=== PATIENT | female | born 1975 | race Caucasian/White ===

== ENCOUNTER 2021-03-08 15:11 | Inpatient (IN) ==
[2021-03-08] MEDS ORDERED: KETOROLAC TROMETHAMINE 15 MG/ML VIAL IV STA (15:24)
[2021-03-08] MEDS ORDERED: SODIUM CHLORIDE 0.9% 1000ML 1,000 ML IV ONE (15:24)
[2021-03-08] MEDS ORDERED: ONDANSETRON INJ 2 MG/ML 2 ML VIAL IV STA (15:24)
--- NOTE | 2021-03-08 15:37 | Emergency Department Note ---
History of Present Illness General Chief Complaint: GI Assessment Stated Complaint: R SIDE ABD PAIN INTO BACK,VOMITING,SX COUPLE DAYS Time Seen by Provider: 03/08/21 15:18 History of Present Illness Provider Complaint: flank pain (R) Onset (ago): 1 week(s) Pain Consistency: constant Location: R flank Radiation: RLQ Migration to: no migration Severity: moderate Current Pain Intensity: 6 Quality: + stabbing, + aching, + sharp and + dull Relieved By: + nothing Exacerbated By: + vomiting Context: + possible food poisoning; no foreign travel, no sick contacts, no recent antibiotic use, no recent surgery/procedure, no recent injury and no history of similar episodes Associated Symptoms: + nausea and + vomiting; no diarrhea, no fever, no chills, no constipation, no dysuria, no hematemesis, no hematochezia, no melena, no hematuria, no anorexia, no syncope, no headache, no neck pain, no back pain, no chest pain, no breathing difficulty and no numbness polyuria Home Medications Medication Instructions Recorded Confirmed Type fluticasone propion-salmeterol 0 puff INHALATION BID 11/07/19 03/08/21 History [Advair Diskus] hydroxyzine pamoate 50 mg PO TID PRN 11/07/19 03/08/21 History mometasone 50 mcg/actuation nasal 2 sprays INTNAS DAILY 11/15/19 03/08/21 History spray albuterol sulfate 90 mcg/actuation 2 puffs INH Q6H PRN 11/23/19 03/08/21 History breath activated powder inhaler cholecalciferol (vitamin D3) 25 mcg PO DAILY 03/08/21 03/08/21 History [Vitamin D3] gabapentin See Rx Instructions .ROUTE .COMPLEX 03/08/21 03/08/21 History meloxicam 15 mg PO DAILY 03/08/21 03/08/21 History montelukast [Singulair] 10 mg PO DAILY 03/08/21 03/08/21 History omeprazole 20 mg PO DAILY 03/08/21 03/08/21 History venlafaxine [Effexor XR] 225 mg PO DAILY 03/08/21 03/08/21 History Allergies Allergy/AdvReac Type Severity Reaction Status Date / Time amoxicillin Allergy Severe THROAT Verified 03/08/21 16:53 SWELLS, HIVES Penicillins Allergy Severe THROAT Verified 03/08/21 16:53 SWELLS, HIVES cephalexin Allergy Intermediate TONGUE Verified 03/08/21 16:53 SWELLS erythromycin base Allergy Intermediate Hives Verified 03/08/21 16:53 Macrolide Antibiotics Allergy Intermediate Hives Verified 03/08/21 16:53 metoclopramide Allergy Intermediate DYSPNEA Verified 03/08/21 16:53 Past Med/Surg History Medical History Asthma without acute exacerbation Depression Liver cirrhosis Morbid obesity No pertinent family history Sarcoidosis Surgical History History of cholecystectomy History of right knee surgery History of tonsillectomy and adenoidectomy Social History Smoking Status: Former smoker Hx Alcohol Use: Yes Alcohol type: wine Hx Substance Use: No Preferred Language: Thai Beliefs That Will Affect Care: None Current Living Situation: Family Feels Safe at Home: Yes Assistive Devices: None Review of Systems A total of 10 systems reviewed and were otherwise negative Physical Exam Vital Signs: Vital Signs - 24 hr 03/08/21 15:15 03/08/21 15:25 03/08/21 15:40 Temperature 36.6 C Temperature Source Oral Pulse Rate 78 83 81 Pulse Rate from Sp O2 Sensor 79 Pulse Rhythm Regular Respiratory Rate 18 20 20 Blood Pressure 170/110 H 138/91 Blood Pressure Marta n 130 106 Pulse Oximetry 94 98 99 Oxygen Delivery Me thod Room Air Sepsis Recent Feve r Within 48 Hours No Sepsis New/Unexpla ined Change in Men jasvir Status No Sepsis Action Take n by Nursing No Action Required 03/08/21 15:50 03/08/21 16:00 03/08/21 16:01 Temperature Temperature Source Pulse Rate 75 76 81 Pulse Rate from Sp O2 Sensor 75 76 84 Pulse Rhythm Respiratory Rate 25 H 14 22 Blood Pressure 116/95 Blood Pressure Marta n 102 Pulse Oximetry 99 95 98 Oxygen Delivery Me thod Sepsis Recent Feve r Within 48 Hours Sepsis New/Unexpla ined Change in Men jasvir Status Sepsis Action Take n by Nursing 03/08/21 16:24 03/08/21 16:25 03/08/21 16:30 Temperature Temperature Source Pulse Rate 76 72 76 Pulse Rate from Sp O2 Sensor 74 72 78 Pulse Rhythm Respiratory Rate 25 H 13 18 Blood Pressure 131/86 Blood Pressure Marta n 101 Pulse Oximetry 96 100 100 Oxygen Delivery Me thod Sepsis Recent Feve r Within 48 Hours Sepsis New/Unexpla ined Change in Men jasvir Status Sepsis Action Take n by Nursing 03/08/21 16:31 03/08/21 16:40 Temperature Temperature Source Pulse Rate 79 90 Pulse Rate from Sp O2 Sensor 83 89 Pulse Rhythm Respiratory Rate 17 15 Blood Pressure 137/96 Blood Pressure Marta n 109 Pulse Oximetry 100 96 Oxygen Delivery Me thod Sepsis Recent Feve r Within 48 Hours Sepsis New/Unexpla ined Change in Men jasvir Status Sepsis Action Take n by Nursing Physical Exam: Physical Exam GENERAL: She is oriented to person, place, and time. She appears well-developed and well-nourished. She does not appear distressed. HENT: Exam performed. -Head: Normocephalic and atraumatic. -Right Ear: External ear normal. No mastoid tenderness. -Left Ear: External ear normal. No mastoid tenderness. -Mouth/Throat: The oropharynx is clear and moist. No trismus in the jaw. No dental abscesses or uvula swelling. No oropharyngeal exudate or tonsillar abscesses. EYES: Conjunctivae and EOM are normal. Pupils are equal, round, and reactive to light. Right eye exhibits no discharge. Left eye exhibits no discharge. No scleral icterus. NECK: Normal range of motion. Neck supple. No JVD present. No spinous process tenderness present. No carotid bruit present. No rigidity. No tracheal deviation and normal range of motion present. No Brudzinski's sign and no Kernig's sign noted. CV: Normal rate, regular rhythm, normal heart sounds and intact distal pulses. There is no peripheral edema. Palpable radial pulses bue. PULM/CHEST: Effort normal and breath sounds normal. No respiratory distress. No stridor. She has no wheezes. She has no rales. -Chest Wall: She exhibits no tenderness. ABD: The abdomen is soft. Bowel sounds are normal. She has no distension. No mass is present. There is no tenderness. There is no rebound, no guarding, no Kaplan's sign and no tenderness at McBurney's point. Rovsig negative. Right- sided CVA tenderness. MUSC/SKEL: Normal range of motion. There is no peripheral edema, tenderness or deformity. LYMPH: No cervical adenopathy. NEURO: She is alert and oriented to person, place, and time. She has normal strength. No cranial nerve deficit or sensory deficit. Coordination and gait normal. GCS eye subscore is 4. GCS verbal subscore is 5. GCS motor subscore is 6. Cerebellar tests wnl. SKIN: Skin is warm and dry. She is not diaphoretic. PSYCH: She has a normal mood and affect. Behavior is normal. Judgment and thought content normal. Course Course 1518: The patient was evaluated in room C1. A complete history and physical exam was performed Cardiac monitoring: An order was placed for continuous cardiac monitoring. The monitor shows a rate of 80 with sinus rhythm 1640: Vital signs stable. Labs within normal limits. Urinalysis is contamin ated but does not appear infected. CT shows a large 11 mm right-sided kidney stone in the distal ureter resulting in hydroureteronephrosis. Patient is still having increasing pain. [facility] Dr. Galaviz. Discussed the case with urology on-call Dr. Denny who agrees to be on consult. Administered Medications Discontinued Medications Hydromorphone HCl (Hydromorphone Inj 1 Mg/Ml Syringe) 1 mg IV NOW STA Stop: 03/08/21 16:39 Last Admin: 03/08/21 16:51 Dose: 1 mg Documented by: [id number] Sodium Chloride (Nss 1000ml) 1,000 mls @ 999 mls/hr IV .Q1H1M ONE Stop: 03/08/21 16:24 Last Infusion: 03/08/21 16:57 Dose: 999 mls/hr Documented by: [id number] Admin: 03/08/21 15:48 Dose: 999 mls/hr Documented by: [id number] Ketorolac Tromethamine (Ketorolac Tromethamine 15 Mg/Ml Vial) 15 mg IV NOW STA Stop: 03/08/21 15:25 Last Admin: 03/08/21 15:48 Dose: 15 mg Documented by: [id number] Ondansetron HCl (Ondansetron Inj 2 Mg/Ml 2 Ml Vial) 4 mg IV NOW STA Stop: 03/08/21 15:25 Last Admin: 03/08/21 15:48 Dose: 4 mg Documented by: [id number] Medical Decision Making Laboratory Data Result diagrams: 03/08/21 15:46 03/08/21 15:46 Lab Results 03/08/21 03/08/21 03/08/21 Range/Units 15:36 15:36 15:46 WBC 8.51 (4.8-10.8) K/uL RBC 4.80 (4.2-5.4) M/uL Hgb 13.7 (12.0-16.0) g/dL Hct 41.1 (37-47) % MCV 85.6 (80-100) fL MCH 28.5 (25-34) pg MCHC 33.3 (32-36) g/dL RDW Std Deviation 45.4 (36.4-46.3) fL RDW Coeff of Reece 14.5 (11.5-14.5) % Plt Count 363 (130-400) K/uL MPV 10.2 (7.4-10.4) fL Immature Gran % (Auto) 0.1 % Neut % (Auto) 80.7 % Lymph % (Auto) 11.6 % [place] % (Auto) 6.6 % Eos % (Auto) 0.8 % Baso % (Auto) 0.2 % Neut # (Auto) 6.86 H (1.4-6.5) K/uL Lymph # (Auto) 0.99 L (1.2-3.4) K/uL [place] # (Auto) 0.56 (0.11-0.59) K/uL Eos # (Auto) 0.07 (0-0.5) K/uL Baso # (Auto) 0.02 (0-0.2) K/uL Immature Gran # (Auto) 0.01 (0.00-0.02) K/uL Sodium (136-145) mmol/L Potassium (3.5-5.1) mmol/L Chloride (98-107) mmol/L Carbon Dioxide (21-32) mmol/L Anion Gap (3-11) BUN (7-18) mg/dl Creatinine (0.6-1.2) mg/dl Est Cr Clr Drug Dosing Est GFR ( Amer) ml/min Est GFR (Non-Af Amer) ml/min BUN/Creatinine Ratio (10-20) Glucose (70-99) mg/dl Calcium (8.5-10.1) mg/dl Total Bilirubin (0.2-1) mg/dl Direct Bilirubin (0-0.2) mg/dl AST (15-37) U/L ALT (12-78) U/L Alkaline Phosphatase (45-117) U/L Total Protein (6.4-8.2) gm/dl Albumin (3.4-5.0) gm/dl Lipase (73-393) U/L Urine Color Mccone Urine Appearance Cloudy A (Clear) Urine pH 6.0 (4.5-7.5) Ur Specific [place] 1.030 (1.000-1.030) Urine Protein 2+ H (Negative) Urine Glucose (UA) Negative (Negative) Urine Ketones Trace H (Negative) Urine Blood 3+ H (Negative) Urine Nitrite Negative (Negative) Urine Bilirubin 1+ H (Negative) Urine Urobilinogen Negative (Negative) Ur Leukocyte Esterase Trace H (Negative) Urine WBC (Auto) 10-30 H (0-5) /hpf Urine RBC (Auto) >30 H (0-4) /hpf U Hyaline Cast (Auto) 1-5 (0-5) /lpf U Epithel Cells (Auto) >30 H (0-5) /lpf Urine Bacteria (Auto) Negative (Negative) POC Ur Test NEG (NEG) COVID-19 Eval Order 03/08/21 03/08/21 Range/Units 15:46 16:43 WBC (4.8-10.8) K/uL RBC (4.2-5.4) M/uL Hgb (12.0-16.0) g/dL Hct (37-47) % MCV (80-100) fL MCH (25-34) pg MCHC (32-36) g/dL RDW Std Deviation (36.4-46.3) fL RDW Coeff of Reece (11.5-14.5) % Plt Count (130-400) K/uL MPV (7.4-10.4) fL Immature Gran % (Auto) % Neut % (Auto) % Lymph % (Auto) % [place] % (Auto) % Eos % (Auto) % Baso % (Auto) % Neut # (Auto) (1.4-6.5) K/uL Lymph # (Auto) (1.2-3.4) K/uL [place] # (Auto) (0.11-0.59) K/uL Eos # (Auto) (0-0.5) K/uL Baso # (Auto) (0-0.2) K/uL Immature Gran # (Auto) (0.00-0.02) K/uL Sodium 137 (136-145) mmol/L Potassium 3.5 (3.5-5.1) mmol/L Chloride 104 (98-107) mmol/L Carbon Dioxide 27 (21-32) mmol/L Anion Gap 6.0 (3-11) BUN 17 (7-18) mg/dl Creatinine 0.91 (0.6-1.2) mg/dl Est Cr Clr Drug Dosing Not Reportable Est GFR ( Amer) 88.3 ml/min Est GFR (Non-Af Amer) 76.2 ml/min BUN/Creatinine Ratio 18.3 (10-20) Glucose 139 H (70-99) mg/dl Calcium 9.4 (8.5-10.1) mg/dl Total Bilirubin 0.4 (0.2-1) mg/dl Direct Bilirubin 0.2 (0-0.2) mg/dl AST 42 H (15-37) U/L ALT 85 H (12-78) U/L Alkaline Phosphatase 259 H (45-117) U/L Total Protein 8.0 (6.4-8.2) gm/dl Albumin 3.5 (3.4-5.0) gm/dl Lipase 116 (73-393) U/L Urine Color Urine Appearance (Clear) Urine pH (4.5-7.5) Ur Specific [place] (1.000-1.030) Urine Protein (Negative) Urine Glucose (UA) (Negative) Urine Ketones (Negative) Urine Blood (Negative) Urine Nitrite (Negative) Urine Bilirubin (Negative) Urine Urobilinogen (Negative) Ur Leukocyte Esterase (Negative) Urine WBC (Auto) (0-5) /hpf Urine RBC (Auto) (0-4) /hpf U Hyaline Cast (Auto) (0-5) /lpf U Epithel Cells (Auto) (0-5) /lpf Urine Bacteria (Auto) (Negative) POC Ur Test (NEG) COVID-19 Eval Order Covid19 at [facility] Imaging Data Radiologist's Impression: Abdomen/Pelvis CT 03/08/21 15:[address] WITHOUT CONTRAST CT DOSE: 1206.15 mGycm HISTORY: R flank pain polyuria TECHNIQUE: Multiaxial CT images of the abdomen and pelvis were performed without contrast. A dose lowering technique was utilized adhering to the principles of ALARA. COMPARISON STUDY: Abdomen and pelvis CT 11/07/2019. FINDINGS: Significant decrease in size in the pulmonary nodules seen on the prior study. Dominant nodule in the left lung base measures 4 mm, previously measuring 7 mm. No pneumoperitoneum. No pneumatosis. No suspicious lytic or blastic osseous lesions. Cholecystectomy. Nodular contour to the liver, unchanged. There is moderate patchy steatosis. The unenhanced spleen, adrenal glands, and pancreas are unremarkable. Normal left kidney. There is moderate right hydroureteronephrosis secondary to an obstructing 11 mm stone within the distal right ureter which is at the level of the iliac vessels. The bladder is not well-distended but appears unremarkable. The uterus and bilateral adnexa are within normal limits. No pelvic free fluid. Suboptimal evaluation for bowel pathology due to the lack of intravenous and oral contrast. However, there is no definite bowel wall thickening or obstruction. Mild mesenteric panniculitis remains unchanged. Normal appendix. No retroperitoneal lymphadenopathy. Normal caliber abdominal aorta. IMPRESSION: 1. An 11 mm obstructing stone within the distal right ureter resulting in moderate right hydroureteronephrosis. 2. No change in the nodular contour to the liver suggestive of cirrhosis. 3. Significant decrease in size in the pulmonary nodules. 4. Cholecystectomy. ACT 112: Negative or not required by law. Electronically signed by: Bartolome Pollard M.D. 03/08/2021 4:31 PM Chest X-Ray 03/08/21 15:24 XR chest 1V portable CLINICAL HISTORY: flank pain COMPARISON STUDY: November 16, 2019 FINDINGS: No pneumothorax. No pleural effusion. Patchy airspace opacities are seen within left retrocardiac and right infrahilar region and could represent atelectasis or infiltrates. Minimal reticular pr ominence of pulmonary interstitium is seen bilaterally. Cardiomediastinal silhouette is within normal limits in size. No significant pulmonary vascular congestion.. Osseous structures: unremarkable IMPRESSION: 1. Questionable atelectasis/infiltrates within left retrocardiac and right inf rahilar region. ACT 112: Negative or not required by law. The above report was generated using voice recognition software. It may contain grammatical, syntax or spelling errors. Electronically signed by: Milly Thapa DO 03/08/2021 4:37 PM MDM Narrative Vital signs stable. Labs within normal limits. Urinalysis is contaminated but does not appear infected. CT shows a large 11 mm right-sided kidney stone in the distal ureter resulting in hydroureteronephrosis. Patient is still having increasing pain. Patient will be admitted to the [facility] hospitalist team as her PCP is Dr. Galaviz. Discussed the case with urology on-call Dr. Denny who agrees to be on consult. Impression & Plan Kidney stone, Hydroureteronephrosis Discharge Plan Visit Data Chief Complaint: GI Assessment Stated Complaint: R SIDE ABD PAIN INTO BACK,VOMITING,SX COUPLE DAYS ED Provider: Dariel Barr Discharge Problem: Kidney stone, Hydroureteronephrosis Patient Disposition: Being Evaluated by Hospitalist Forms Stand Alone Forms: [facility] Aura XM Prescriptions Prescriptions: No Action mometasone [Nasonex] 50 mcg/actuation spray,non-aerosol 2 sprays INTNAS DAILY RF: 0 albuterol sulfate 90 mcg/actuation aerosol powdr breath activated 2 puffs INH Q6H PRN (Reason: Shortness Of Breath) RF: 0 hydroxyzine pamoate 50 mg Capsule 50 mg PO TID PRN (Reason: Anxiety) RF: 0 fluticasone propion-salmeterol [Advair Diskus] 100-50 mcg/dose Blister With Device 0 puff INHALATION BID RF: 0 venlafaxine [Effexor XR] 75 mg Capsule,Extended Release 24hr 225 mg PO DAILY RF: 0 meloxicam 15 mg Tablet 15 mg PO DAILY RF: 0 gabapentin 300 mg Capsule See Rx Instructions .ROUTE .COMPLEX RF: 0 montelukast [Singulair] 10 mg Tablet 10 mg PO DAILY RF: 0 cholecalciferol (vitamin D3) [Vitamin D3] 25 mcg (1,000 unit) Capsule 25 mcg PO DAILY RF: 0 omeprazole 20 mg Tablet,Delayed Release (Dr/Ec) 20 mg PO DAILY RF: 0 Referrals Referrals: [facility],Medicine [Primary Care Provider] -
[2021-03-08 16:08] LABS: Basophils # (auto) 0.02 K/uL (0-0.2); Basophils % (auto) 0.2 %; Eosinophils # (auto) 0.07 K/uL (0-0.5); Eosinophils % (auto) 0.8 %; Hematocrit (blood only) 41.1 % (37-47); Hemoglobin 13.7 g/dL (12.0-16.0); Immature Granulocytes # (auto) 0.01 K/uL (0.00-0.02); Immature Granulocytes % (auto) 0.1 %; Lymphocytes # (auto) 0.99 K/uL (1.2-3.4); Lymphocytes % (auto) 11.6 %; Mean Corpuscular Hemoglobin 28.5 pg (25-34); Mean Corpuscular Hgb Conc 33.3 g/dL (32-36); Mean Corpuscular Volume 85.6 fL (80-100); Mean Platelet Volume 10.2 fL (7.4-10.4); Monocytes # (auto) 0.56 K/uL (0.11-0.59); Monocytes % (auto) 6.6 %; Neutrophils # (auto) 6.86 K/uL (1.4-6.5); Neutrophils % (auto) 80.7 %; Platelet Count 363 K/uL (130-400); RDW Coefficient of Variation 14.5 % (11.5-14.5); RDW Standard Deviation 45.4 fL (36.4-46.3); White Blood Count 8.51 K/uL (4.8-10.8)
[2021-03-08 16:20] LABS: Appearance Urine Cloudy (Clear); Bacteria Urine Automated Negative (Negative); Blood Urine 3+ (Negative); Color Urine Orange; Epithelial Cell Urine Auto >30 /lpf (0-5); Glucose Urine UA Negative (Negative); Ketones Urine Trace (Negative); Leukocyte Esterase Urine Trace (Negative); Nitrite Urine Negative (Negative); Protein Urine 2+ (Negative); RBC Urine Automated >30 /hpf (0-4); Urobilinogen Urine Negative (Negative)
[2021-03-08 16:25] LABS: Alanine Aminotransferase 85 U/L (12-78); Albumin Level 3.5 gm/dl (3.4-5.0); Aspartate Aminotransferase 42 U/L (15-37); BUN Creatinine Ratio 18.3 (10-20); Bilirubin Direct 0.2 mg/dl (0-0.2); Blood Urea Nitrogen 17 mg/dl (7-18); Calcium 9.4 mg/dl (8.5-10.1); Carbon Dioxide 27 mmol/L (21-32); Chloride 104 mmol/L (98-107); Est GFR (African American) 88.3 ml/min; Est GFR (Non-African American) 76.2 ml/min; Glucose 139 mg/dl (70-99); Lipase 116 U/L (73-393); Potassium 3.5 mmol/L (3.5-5.1); Sodium 137 mmol/L (136-145)
[2021-03-08 16:25] LABS: Bilirubin Urine 1+ (Negative)
[2021-03-08 16:28] LABS: Alkaline Phosphatase 259 U/L (45-117); Bilirubin,Total 0.4 mg/dl (0.2-1)
--- NOTE | 2021-03-08 16:32 | CT Scan Report ---
ABDOMEN AND PELVIS CT WITHOUT CONTRAST CT DOSE: 1206.15 mGycm HISTORY: R flank pain polyuria TECHNIQUE: Multiaxial CT images of the abdomen and pelvis were performed without contrast. A dose lo wering technique was utilized adhering to the principles of ALARA. COMPARISON STUDY: Abdomen and pelvis CT 11/07/2019. FINDINGS: Significant decrease in size in the pulmonary nodules seen on the prior study. Dominant nod ule in the left lung base measures 4 mm, previously measuring 7 mm. No pneumoperitoneum. No pneumatos is. No suspicious lytic or blastic osseous lesions. Cholecystectomy. Nodular contour to the liver, un changed. There is moderate patchy steatosis. The unenhanced spleen, adrenal glands, and pancreas are unremarkable. Normal left kidney. There is moderate right hydroureteronephrosis secondary to an obstr ucting 11 mm stone within the distal right ureter which is at the level of the iliac vessels. The jaspreet dder is not well-distended but appears unremarkable. The uterus and bilateral adnexa are within lorene l limits. No pelvic free fluid. Suboptimal evaluation for bowel pathology due to the lack of intraven ous and oral contrast. However, there is no definite bowel wall thickening or obstruction. Mild mesen teric panniculitis remains unchanged. Normal appendix. No retroperitoneal lymphadenopathy. Normal robe iber abdominal aorta. IMPRESSION: 1. An 11 mm obstructing stone within the distal right ureter resulting in moderate right hydrouretero nephrosis. 2. No change in the nodular contour to the liver suggestive of cirrhosis. 3. Significant decrease in size in the pulmonary nodules. 4. Cholecystectomy. ACT 112: Negative or not required by law. Electronically signed by: Bartolome Pollard M.D. 03/08/2021 4:31 PM
[2021-03-08] MEDS ORDERED: HYDROmorphone INJ 1 MG/ML SYRINGE IV STA (16:38)
--- NOTE | 2021-03-08 16:38 | XRay Report ---
XR chest 1V portable CLINICAL HISTORY: flank pain COMPARISON STUDY: November 16, 2019 FINDINGS: No pneumothorax. No pleural effusion. Patchy airspace opacities are seen within left retrocardiac and right infrahilar region and could rep resent atelectasis or infiltrates. Minimal reticular prominence of pulmonary interstitium is seen rehana aterally. Cardiomediastinal silhouette is within normal limits in size. No significant pulmonary vascular congestion.. Osseous structures: unremarkable IMPRESSION: 1. Questionable atelectasis/infiltrates within left retrocardiac and right infrahilar region. ACT 112: Negative or not required by law. The above report was generated using voice recognition software. It may contain grammatical, syntax o r spelling errors. Electronically signed by: Milly Thapa DO 03/08/2021 4:37 PM
--- NOTE | 2021-03-08 18:17 | History & Physical Report ---
Date of Service March 08, 2021 Assessment & Plan (1) Right ureteral calculus: (2) Hydroureteronephrosis: Pt is 45 y/o F with PMH asthma, sarcoidosis, RODRIGUES cirrhosis, h/o kidney stone requiring lithotripsy presented to ER complaint of right sided abdominal pain, nausea, vomiting x3 days. Denies fevers, dysuria. In ER No leukocytosis. UA: 3+blood, trace leuk esterase, >30 epithelial, no bacteria, BUN: 17, Cr: 0.9, GFR:76. CT abdomen pelvis reveals 11 mm obstructing stone within the distal right ureter resulting in moderate right hydroureteronephrosis. In ER was given Toradol 15mg IV, Dilaudid 1mg IV, 1L NSS -Urine culture pending -Strain urine -IVF -Toradol, oxycodone, Dilaudid prn pain -NPO midnight -Urology consult, ER provider spoke with contract coordinator -CBC, BMP in am (3) Asthma: -Continue albuterol, Breo (4) Liver cirrhosis: RODRIGUES cirrhosis Follows with [facility] GI AST: 42 (baseline 37), ALT: 85 (baseline: 59), Alk Phos: 259, (baseline 278) (5) GERD (gastroesophageal reflux disease): -Continue PPI (6) Anxiety: -Continue venlafaxine DVT Prophylaxis -SCDs Full code Follows with [facility] for routine care Pt was seen and care coordinated with Dr Bourgeois. See addendum History of Present Illness Chief Complaint: Abdominal pain Primary Care Provider: [facility] Pt is 45 y/o F with PMH asthma, sarcoidosis, RODRIGUES cirrhosis, h/o kidney stone requiring lithotripsy presented to ER complaint of abdominal pain, nausea, vomiting x3 days. Reports right-sided abdominal pain radiating to right groin. Complains of nausea and multiple episodes of vomiting daily. Has been taking temperature and no fevers at home. Denies dysuria, unsure if had hematuria has just finished menstrual cycle. Denies ill contacts, recent travel, hematemesis, hematochezia, diarrhea, constipation, ROGERS, dizziness, syncope, vision changes, neck pain, CP, SOB, orthopnea, palpitations, cough, sore throat, choking, otalgia, rhinorrhea, paresthesias, weakness, extremity weakness, extremity edema, rashes. In ER CT abdomen pelvis reveals 11 mm obstructing stone within the distal right ureter resulting in moderate right hydroureteronephrosis. UA not consistent with infection, renal functions WNL at this time. Patient being admitted for further evaluation and treatment. Allergies Allergy/AdvReac Type Severity Reaction Status Date / Time amoxicillin Allergy Severe THROAT Verified 03/08/21 16:53 SWELLS, HIVES Penicillins Allergy Severe THROAT Verified 03/08/21 16:53 SWELLS, HIVES cephalexin Allergy Intermediate TONGUE Verified 03/08/21 16:53 SWELLS erythromycin base Allergy Intermediate Hives Verified 03/08/21 16:53 Macrolide Antibiotics Allergy Intermediate Hives Verified 03/08/21 16:53 metoclopramide Allergy Intermediate DYSPNEA Verified 03/08/21 16:53 Home Medications Medication Instructions Recorded Confirmed Type hydroxyzine pamoate 50 mg PO TID PRN 11/07/19 03/08/21 History mometasone 50 mcg/actuation nasal 2 sprays INTNAS DAILY 11/15/19 03/08/21 History spray albuterol sulfate 90 mcg/actuation 2 puffs INH Q6H PRN 11/23/19 03/08/21 History breath activated powder inhaler cholecalciferol (vitamin D3) 25 mcg PO DAILY 03/08/21 03/08/21 History [Vitamin D3] fluticasone propion-salmeterol 1 inh INHALATION BID 03/08/21 03/08/21 History [Advair Diskus] gabapentin See Rx Instructions .ROUTE .COMPLEX 03/08/21 03/08/21 History meloxicam 15 mg PO DAILY 03/08/21 03/08/21 History montelukast [Singulair] 10 mg PO DAILY 03/08/21 03/08/21 History omeprazole 20 mg PO DAILY 03/08/21 03/08/21 History venlafaxine [Effexor XR] 225 mg PO DAILY 03/08/21 03/08/21 History Past Med/Surg History Medical History (Updated 03/08/21 @ 18:50 by Brandee James PA-C) Anxiety Asthma Asthma without acute exacerbation Depression GERD (gastroesophageal reflux disease) Liver cirrhosis RODRIGUES Morbid obesity Sarcoidosis Surgical History History of cholecystectomy History of right knee surgery History of tonsillectomy and adenoidectomy Family History (Updated 03/08/21 @ 18:48 by Brandee James PA-C) Other Cancer Diabetes Hypertension Social History (Updated 03/08/21 @ 18:48 by Brandee James PA-C) Smoking Status: Former smoker Hx Alcohol Use: Yes Alcohol type: wine Alcohol Intake Frequency: 2-4 x/Month Hx Substance Use: No Preferred Language: Romansh Beliefs That Will Affect Care: None Current Living Situation: Family Feels Safe at Home: Yes Assistive Devices: None Review of Systems Review of Systems: All systems reviewed & are unremarkable except as noted in HPI & below Physical Exam Physical Exam: General: no distress, obese Head: normocephalic, atraumatic Eyes: conjunctiva non-injected, anicteric ENT: normal inspection external ears, nose, mucous membranes mildly dry Neck: supple, trachea midline, Lungs: clear, no respiratory distress, no wheezing/rhonchi/rales CV: RRR, no murmur,no pretibial edema Abd: protuberant, normal BS, soft, +tenderness to palpation right CVA, right flank Ext: no cyanosis, no calf tenderness Neuro: A&O x 3, no focal deficits noted, normal affect Skin: warm, dry Results & Data Results & Data ([facility]) Vital Signs (Past 12 Hours) Vital Signs Temp Pulse Resp BP Pulse Ox 03/08/21 17:50 79 18 94 03/08/21 17:40 74 15 93 03/08/21 17:31 67 19 141/89 H 93 03/08/21 17:30 68 14 96 03/08/21 17:20 75 15 92 03/08/21 17:10 75 23 93 03/08/21 17:01 79 16 119/80 96 03/08/21 17:00 83 13 97 03/08/21 16:50 91 H 19 99 03/08/21 16:40 90 15 96 03/08/21 16:31 79 17 137/96 100 03/08/21 16:30 76 18 100 03/08/21 16:25 72 13 131/86 100 03/08/21 16:24 76 25 H 96 03/08/21 16:01 81 22 116/95 98 03/08/21 16:00 76 14 95 03/08/21 15:50 75 25 H 99 06/04/21 15:40 81 20 138/91 99 03/08/21 15:25 83 20 98 03/08/21 15:15 36.6 C 78 18 170/110 H 94 Laboratory Results Short CBC 03/08/21 Range/Units 15:46 WBC 8.51 (4.8-10.8) K/uL Hgb 13.7 (12.0-16.0) g/dL Hct 41.1 (37-47) % Plt Count 363 (130-400) K/uL BMP 03/08/21 15:46 Sodium 137 Potassium 3.5 Chloride 104 Carbon Dioxide 27 BUN 17 Creatinine 0.91 Glucose 139 H Calcium 9.4 Liver Function 03/08/21 Range/Units 15:46 Total Bilirubin 0.4 (0.2-1) mg/dl Direct Bilirubin 0.2 (0-0.2) mg/dl AST 42 H (15-37) U/L ALT 85 H (12-78) U/L Alkaline Phosphatase 259 H (45-117) U/L Albumin 3.5 (3.4-5.0) gm/dl Urine 03/08/21 Range/Units 15:36 Urine Color [place] Urine Appearance Cloudy A (Clear) Urine pH 6.0 (4.5-7.5) Ur Specific [place] 1.030 (1.000-1.030) Urine Protein 2+ H (Negative) Urine Glucose (UA) Negative (Negative) Diagnostic Findings Abdomen/Pelvis CT 03/08/21 15:[address] WITHOUT CONTRAST CT DOSE: 1206.15 mGycm HISTORY: R flank pain polyuria TECHNIQUE: Multiaxial CT images of the abdomen and pelvis were performed without contrast. A dose lowering technique was utilized adhering to the principles of ALARA. COMPARISON STUDY: Abdomen and pelvis CT 11/07/2019. FINDINGS: Significant decrease in size in the pulmonary nodules seen on the prior study. Dominant nodule in the left lung base measures 4 mm, previously me asuring 7 mm. No pneumoperitoneum. No pneumatosis. No suspicious lytic or blastic osseous lesions. Cholecystectomy. Nodular contour to the liver, unchanged. There is moderate patchy steatosis. The unenhanced spleen, adrenal glands, and pancreas are unremarkable. Normal left kidney. There is moderate right hydroureteronephrosis secondary to an obstructing 11 mm stone within the distal right ureter which is at the level of the iliac vessels. The bladder is not well-distended but appears unremarkable. The uterus and bilateral adnexa are within normal limits. No pelvic free fluid. Suboptimal evaluation for bowel pathology due to the lack of intravenous and oral contrast. However, there is no definite bowel wall thickening or obstruction. Mild mesenteric panniculitis remains unchanged. Normal appendix. No retroperitoneal lymphadenopathy. Normal caliber abdominal aorta. IMPRESSION: 1. An 11 mm obstructing stone within the distal right ureter resulting in moderate right hydroureteronephrosis. 2. No change in the nodular contour to the liver suggestive of cirrhosis. 3. Significant decrease in size in the pulmonary nodules. 4. Cholecystectomy. ACT 112: Negative or not required by law. Electronically signed by: Bartolome Pollard M.D. 03/08/2021 4:31 PM Chest X-Ray 03/08/21 15:24 XR chest 1V portable CLINICAL HISTORY: flank pain COMPARISON STUDY: November 16, 2019 FINDINGS: No pneumothorax. No pleural effusion. Patchy airspace opacities are seen within left retrocardiac and right infrahilar region and could represent atelectasis or infiltrates. Minimal reticular prominence of pulmonary interstitium is seen bilaterally. Cardiomediastinal silhouette is within normal limits in size. No significant pulmonary vascular congestion.. Osseous structures: unremarkable IMPRESSION: 1. Questionable atelectasis/infiltrates within left retrocardiac and right infrahilar region. ACT 112: Negative or not required by law. The above report was generated using voice recognition software. It may contain grammatical, syntax or spelling errors. Electronically signed by: Milly Thapa DO 03/08/2021 4:37 PM Code Status & VTE Plan VTE Prophylaxis Plan VTE Prophylaxis will be ordered: Yes Supervising Physician Co-Signing Physician Notes Attending addendum: The patient was seen and examined in emergency room in presence of the She has been complaining of right-sided abdominal pain associated with nausea vomiting for the last 3 days Denies any fever and/or chills has frequency but no dysuria and/or hematuria She was noted to have an 11 mm obstructing stone in the right ureter with associated mild hydroureteronephrosis On examination Lying in bed with some discomfort due to abdominal pain Hemodynamically stable with blood pressure on the upper side at 141/89 Chest-clear to auscultate bilaterally Heart-S1-S2, regular Abdomen-mildly distended, tender in the right loin, right renal angle, right lower quadrant and right inguinal area Extremities-trace edema bilaterally GRAIN PACKER-alert, awake and oriented x3 Her admission labs, imaging studies reviewed Has 11 mm obstructing stone within the distal right ureter with associated moderate right hydroureteronephrosis Will be admitted to the hospital and urology consulted No antibiotic has been given due to lack of infection but urine has been sent for culture Agree with assessment and plan as outlined above by RONNY Angel DR
[2021-03-08] MEDS ORDERED: ACETAMINOPHEN 325 MG TAB PO PRN (19:31)
[2021-03-08] MEDS ORDERED: hydrOXYzine HCl 25 MG TAB PO PRN (19:31)
[2021-03-08] MEDS ORDERED: POLYETHYLENE (MIRALAX) 17 GM PACK PO PRN (19:31)
[2021-03-08] MEDS ORDERED: ALBUTEROL HFA 8 GM INHALER INH PRN (19:44)
[2021-03-08] MEDS: SODIUM CHLORIDE 0.9% 1000ML 1,000 ML IV SCH (19:50)
[2021-03-08] MEDS: HYDROmorphone INJ 0.5 MG/0.5 ML SYR IV PRN (20:13)
[2021-03-08] MEDS: ONDANSETRON INJ 2 MG/ML 2 ML VIAL IV PRN (20:13)
[2021-03-08] MEDS ORDERED: FLUTICASONE/VILANTEROL 200/25MCG 14 PUFFS/INHALER INH SCH (21:00)
[2021-03-08] MEDS: oxyCODONE HCL IR 5 MG TAB (IMMEDIATE RELEASE) PO PRN (23:07)
[2021-03-09] MEDS: HYDROmorphone INJ 0.5 MG/0.5 ML SYR IV PRN ×4 (03:41→19:34)
[2021-03-09] MEDS: SODIUM CHLORIDE 0.9% 1000ML 1,000 ML IV SCH ×2 (06:01→20:34)
[2021-03-09 06:56] LABS: Hematocrit (blood only) 37.8 % (37-47); Hemoglobin 12.1 g/dL (12.0-16.0); Mean Corpuscular Hemoglobin 28.6 pg (25-34); Mean Corpuscular Volume 89.4 fL (80-100); Mean Platelet Volume 10.2 fL (7.4-10.4); Platelet Count 316 K/uL (130-400); RDW Coefficient of Variation 14.9 % (11.5-14.5); RDW Standard Deviation 48.5 fL (36.4-46.3); Red Blood Count 4.23 M/uL (4.2-5.4); White Blood Count 6.15 K/uL (4.8-10.8)
[2021-03-09 07:24] LABS: BUN Creatinine Ratio 17.2 (10-20); Calcium 8.4 mg/dl (8.5-10.1); Est GFR (African American) 111.6 ml/min; Est GFR (Non-African American) 96.3 ml/min; Potassium 3.8 mmol/L (3.5-5.1)
[2021-03-09] MEDS: ONDANSETRON INJ 2 MG/ML 2 ML VIAL IV PRN (07:42)
[2021-03-09] MEDS: GABAPENTIN 300 MG CAP PO SCH ×2 (08:37→14:24)
[2021-03-09] MEDS: MONTELUKAST SODIUM 10 MG TABLET PO SCH (08:37)
[2021-03-09] MEDS: PANTOprazole 40 MG TAB PO SCH (08:37)
[2021-03-09] MEDS: CHOLECALCIFEROL 1,000 UNITS 25 MCG TAB PO SCH (08:37)
[2021-03-09] MEDS: VENLAFAXINE HCL XR 75 MG CAPXR PO SCH (08:37)
[2021-03-09] MEDS: FLUTICASONE PROPIONATE NA SPR 16 GM BTL SCH (08:40)
[2021-03-09] MEDS: FLUTICASONE/VILANTEROL 200/25MCG 14 PUFFS/INHALER INH SCH (08:40)
[2021-03-09] MEDS: KETOROLAC TROMETHAMINE 15 MG/ML VIAL IV PRN (11:03)
--- NOTE | 2021-03-09 11:15 | Urology Consultation ---
Date of Consultation March 09, 2021 Assessment & Plan (1) Right ureteral calculus: Patient found to have large obstructing stone. Has significant flank pain into groin. Comes and goes. Has been improved and tolerable with medications. Has not had considerable fevers. No major episodes of hypotension or tachycardia. Patient is being monitored for fevers chills. She is continued on IV antibiotics. She is tolerating diet for now. Discussed different options including maximum expulsion therapy. Discussed different options for management. Discussed possible intervention. Discussed options for conservative measure and maximum expulsion medical therapy and symptom controlled. Discussed ESWL. Discussed Ureteroscopy with extraction and/or laser lithotripsy. Risks and benefits were discussed. Stone free rates were also discussed as well as possibility of multiple procedures. Ureteral stents were discussed as well as post-operative issues and pain management. All questions were answered. We will plan to continue observation. We will once again plan for n.p.o. after midnight with plans for possible intervention tomorrow if patient is still having issues. If patient does improve or if stone passes or if pain becomes more tolerable may be able to monitor and to continue with expulsion therapy as an outpatient. If patient is continuing to need medication pain control as well as further management and hydration or management of patient's nausea may need to consider intervention. Patient is agreeable. We will continue to monitor. Patient complicated medical and surgical history is reviewed and summarized above. All imaging including the CT scan was reviewed and summarized by myself with read of a obstructing stone. History of Present Illness Attending Physician: Jeramy Contreras MD History of Present Illness New consultation for patient with stone, discomfort, obstruction, and ill feelings. Patient developed sudden onset of pain into flank going down and radiating into groin and back in waves comes and goes. Can be severe at times. Discussed and reviewed patient's family history for any history of stone disease. Also, discussed patient's medical surgery history especially related to any history of urinary issues or stone disease. Patient was admitted and is undergoing observation. Allergies Allergy/AdvReac Type Severity Reaction Status Date / Time amoxicillin Allergy Severe THROAT Verified 03/08/21 16:53 SWELLS, HIVES Penicillins Allergy Severe THROAT Verified 03/08/21 16:53 SWELLS, HIVES cephalexin Allergy Intermediate TONGUE Verified 03/08/21 16:53 SWELLS erythromycin base Allergy Intermediate Hives Verified 03/08/21 16:53 Macrolide Antibiotics Allergy Intermediate Hives Verified 03/08/21 16:53 metoclopramide Allergy Intermediate DYSPNEA Verified 03/08/21 16:53 Home Medications Medication Instructions Recorded Confirmed Type hydroxyzine pamoate 50 mg PO TID PRN 11/07/19 03/08/21 History mometasone 50 mcg/actuation nasal 2 sprays INTNAS DAILY 11/15/19 03/08/21 History spray albuterol sulfate 90 mcg/actuation 2 puffs INH Q6H PRN 11/23/19 03/08/21 History breath activated powder inhaler cholecalciferol (vitamin D3) 25 mcg PO DAILY 03/08/21 03/08/21 History [Vitamin D3] fluticasone propion-salmeterol 1 inh INHALATION BID 03/08/21 03/08/21 History [Advair Diskus] gabapentin See Rx Instructions .ROUTE .COMPLEX 03/08/21 03/08/21 History meloxicam 15 mg PO DAILY 03/08/21 03/08/21 History montelukast [Singulair] 10 mg PO DAILY 03/08/21 03/08/21 History omeprazole 20 mg PO DAILY 03/08/21 03/08/21 History venlafaxine [Effexor XR] 225 mg PO DAILY 03/08/21 03/08/21 History Patient History Medical History Anxiety Asthma Asthma without acute exacerbation Depression GERD (gastroesophageal reflux disease) Liver cirrhosis RODRIGUES Morbid obesity Sarcoidosis Surgical History History of cholecystectomy History of right knee surgery History of tonsillectomy and adenoidectomy Family History Other Cancer Diabetes Hypertension Social History Smoking Status: Never smoker Second Hand Exposure: Yes; Do You Dip or Chew Tobacco: No; Tobacco Cessation Education Requested by Patient: No Hx Alcohol Use: No Hx Substance Use: No Preferred Language: Barbadian Communication Ability: Effective [place] Cutter Helper Required: No Beliefs That Will Affect Care: None Current Living Situation: Family Other Information That Helps Us Care for You: No Feels Safe at Home: Yes Safety Concerns: Feels Safe At This Time Assistive Devices: Glasses Assistive Devices Comment: Partial on upper. Review of Systems Review of Systems: All systems reviewed & are unremarkable except as noted in HPI & below Physical Exam Physical Exam: General: Alert and oriented x 3 in no acute distress. Patient is well nourished and well kept. HEENT: Normocephalic Atraumatic. Inspection normal. Cranial Nerves 2-12 Grossly intact. Nares are clear. Neck is supple. Normal inspection of face. Normal inspection of neck. Neurologic: No deficits on inspection. Baseline for motor function and sensory. Psychologic: Normal affect. Respiratory: Nonlabored. No use of accessory muscles. No tachypnea or dyspnea. Cardiovascular: No tachycardia Skin: [place] and Dry. No rashes or visible lesions. Extremities: Moving without issues. No motor deficits on inspection Lymphatics: No edema Abdomen: Soft Non-distended. No acites. No rebound or guarding. Obese. Results & Data ([facility]) Vital Signs (Past 12 Hours) Vital Signs Temp Pulse Resp BP Pulse Ox 03/09/21 06:02 36.5 C 81 16 102/66 94 PG Care Time/CCT Total # of Minutes Spent Total Time Spent with Patient: Total time spent is greater than 50% in coordination of care (as documented) at patient's floor/unit and/or counseling patient: Coding Level of Care Code 93010 Inpt Consult Level 5 Diagnoses Right ureteral calculus N20.1
--- NOTE | 2021-03-09 12:51 | Anesthesiology Consultation ---
Date of Service March 09, 2021 Assessment & Plan (1) Encounter for pre-operative examination: Chart Review Chart Review: entry rep initiated History Surgery Operation Date: 03/10/21 09:00 Proposed Procedures p Cystoscopy - Dhiraj Denny DO s Ureteral Stent Insertion/Removal(Right) - Dhiraj Denny DO Height/Weight Height: 5 ft 3.25 in Weight: 124.5 kg Allergies Allergy/AdvReac Type Severity Reaction Status Date / Time amoxicillin Allergy Severe THROAT Verified 03/08/21 16:53 SWELLS, HIVES Penicillins Allergy Severe THROAT Verified 03/08/21 16:53 SWELLS, HIVES cephalexin Allergy Intermediate TONGUE Verified 03/08/21 16:53 SWELLS erythromycin base Allergy Intermediate Hives Verified 03/08/21 16:53 Macrolide Antibiotics Allergy Intermediate Hives Verified 03/08/21 16:53 metoclopramide Allergy Intermediate DYSPNEA Verified 03/08/21 16:53 Medications Home Medications Medication Instructions Recorded Confirmed Last Taken hydroxyzine pamoate 50 mg PO TID PRN 11/07/19 03/08/21 11/15/19 21:00 mometasone 50 mcg/actuation nasal 2 sprays INTNAS DAILY 11/15/19 03/08/21 03/08/21 spray albuterol sulfate 90 mcg/actuation 2 puffs INH Q6H PRN 11/23/19 03/08/21 Unknown breath activated powder inhaler cholecalciferol (vitamin D3) 25 mcg PO DAILY 03/08/21 03/08/21 03/08/21 [Vitamin D3] fluticasone propion-salmeterol 1 inh INHALATION BID 03/08/21 03/08/21 03/08/21 [Advair Diskus] gabapentin See Rx Instructions .ROUTE .COMPLEX 03/08/21 03/08/21 03/08/21 08:00 meloxicam 15 mg PO DAILY 03/08/21 03/08/21 03/08/21 montelukast [Singulair] 10 mg PO DAILY 03/08/21 03/08/21 03/08/21 omeprazole 20 mg PO DAILY 03/08/21 03/08/21 03/08/21 venlafaxine [Effexor XR] 225 mg PO DAILY 03/08/21 03/08/21 03/08/21 Active Medications Generic Name Dose Route Start Last Admin Trade Name Freq PRN Reason Stop Dose Admin Fluticasone Propionate 2 sprays 03/09/21 09:00 03/09/21 08:40 Fluticasone Propionate Na Spr 16 Gm Btl NA 04/08/21 08:59 2 sprays DAILY STEPHANIE Administration Fluticasone/Vilanterol 1 puffs 03/09/21 09:00 03/09/21 08:40 Fluticasone/Vilanterol 200/25mcg 14 Puffs/Inhaler INH 04/07/21 20:59 1 puffs DAILY STEPHANIE Administration Protocol Gabapentin 300 mg 03/09/21 08:00 03/09/21 08:37 Gabapentin 300 Mg Cap PO 04/08/21 07:59 300 mg BID@0800,1400 STEPHANIE Administration Hydromorphone HCl 0.5 mg 03/08/21 19:31 03/09/21 12:47 Hydromorphone Inj 0.5 Mg/0.5 Ml Syr IV 03/22/21 19:30 0.5 mg Q4H PRN Administration Severe Pain Sodium Chloride 1,000 mls @ 100 mls/hr 03/08/21 19:50 03/09/21 06:01 Nss 1000ml IV 03/09/21 15:49 100 mls/hr .Q10H STEPHANIE Administration Ketorolac Tromethamine 15 mg 03/08/21 19:31 03/09/21 11:03 Ketorolac Tromethamine 15 Mg/Ml Vial IV 03/10/21 19:30 15 mg Q6H PRN Administration Pain Montelukast Sodium 10 mg 03/09/21 09:00 03/09/21 08:37 Montelukast Sodium 10 Mg Tablet PO 04/08/21 08:59 10 mg DAILY STEPHANIE Administration Ondansetron HCl 4 mg 03/08/21 19:31 03/09/21 07:42 Ondansetron Inj 2 Mg/Ml 2 Ml Vial IV 04/07/21 19:30 4 mg Q6H PRN Administration Nausea Oxycodone HCl 5 mg 03/08/21 19:31 03/08/21 23:07 Oxycodone Hcl Ir 5 Mg Tab (Immediate Release) PO 03/22/21 19:30 5 mg Q6H PRN Administration Moderate Pain Pantoprazole Sodium 40 mg 03/09/21 09:00 03/09/21 08:37 Pantoprazole 40 Mg Tab PO 04/08/21 08:59 40 mg DAILY STEPHANIE Administration Protocol Venlafaxine HCl 225 mg 03/09/21 09:00 03/09/21 08:37 Venlafaxine Hcl Xr 75 Mg Capxr PO 04/08/21 08:59 225 mg DAILY STEPHANIE Administration Vitamin D 1,000 units 03/09/21 09:00 03/09/21 08:37 Cholecalciferol 1,000 Units 25 Mcg Tab PO 04/08/21 08:59 1,000 units DAILY STEPHANIE Administration NPO Date Last Intake of Fluids: 03/08/21 Time Last Intake of Fluids: 23:59 Date Last Intake of Solids: 03/08/21 Time Last Intake of Solids: 23:59 Past Medical History Medical History Anxiety Asthma Asthma without acute exacerbation Depression GERD (gastroesophageal reflux disease) Liver cirrhosis RODRIGUES Morbid obesity Sarcoidosis Past Family History Family History Other Cancer Diabetes Hypertension Past Surgical History Surgical History History of cholecystectomy History of right knee surgery History of tonsillectomy and adenoidectomy Social History Smoking Status: Never smoker Do You Dip or Chew Tobacco: No Hx Alcohol Use: No Alcohol type: wine alcohol intake frequency: holidays/special occasions only Hx Substance Use: No substance use type: does not use Physical Exam Vital Signs Last Vital Signs Temp 97.7 F 03/09/21 06:02 Pulse 81 03/09/21 06:02 Resp 16 03/09/21 06:02 BP 102/66 03/09/21 06:02 Pulse Ox 94 03/09/21 06:02 Testing Laboratory Results 03/09/21 06:37 03/09/21 06:37 Urine Color [place] 03/08/21 15:36 Urine Appearance Cloudy (Clear) A 03/08/21 15:36 Urine pH 6.0 (4.5-7.5) 03/08/21 15:36 Ur Specific [place] 1.030 (1.000-1.030) 03/08/21 15:36 Urine Protein 2+ (Negative) H 03/08/21 15:36 Urine Glucose (UA) Negative (Negative) 03/08/21 15:36 Urine Ketones Trace (Negative) H 03/08/21 15:36 Urine Nitrite Negative (Negative) 03/08/21 15:36 Ur Leukocyte Esterase Trace (Negative) H 03/08/21 15:36 Urine WBC (Auto) 10-30 /hpf (0-5) H 03/08/21 15:36 Urine RBC (Auto) >30 /hpf (0-4) H 03/08/21 15:36 U Hyaline Cast (Auto) 1-5 /lpf (0-5) 03/08/21 15:36 U Epithel Cells (Auto) >30 /lpf (0-5) H 03/08/21 15:36 Urine Bacteria (Auto) Negative (Negative) 03/08/21 15:36 03/08/21 15:36 POC Ur Test NEG Chest X-Ray Date: 03/08/21 IMPRESSION: 1. Questionable atelectasis/infiltrates within left retrocardiac and right infrahilar region. Echocardiogram Date: 04/23/20 LV systolic function is normal No regional wall motion abnormalities noted EF 65-70% No significant valvular pathology No prior study for comparison
--- NOTE | 2021-03-09 17:00 | Hospitalist Progress Note ---
Date of Service March 09, 2021 Assessment & Plan (1) Right ureteral calculus: (2) Hydroureteronephrosis: Patient is a 45 yr female with H/O Asthma, sarcoidosis, RODRIGUES cirrhosis, h/o kidney stone requiring lithotripsy presented to ER complaint of right sided abdominal pain, nausea, vomiting x3 days. Right ureteral calculus Right hydroureteronephrosis/Obstructive Uropathy -CT ABD:An 11 mm obstructing stone within the distal right ureter resulting in moderate right hydroureteronephrosis. No change in the nodular contour to the liver suggestive of cirrhosis. Significant decrease in size in the pulmonary nodules. Cholecystectomy. -Urine Cx: No growth -Continue IV fluids Pain control Urology consulted Plan for ureteral stent placement tomorrow Strain Urine (3) Asthma: Continue albuterol, Breo (4) Liver cirrhosis: RODRIGUES cirrhosis Follows with [facility] (5) GERD (gastroesophageal reflux disease): Continue PPI (6) Anxiety: Continue venlafaxine DVT Px SCDs Code Status Full code Disposition Follows with [facility] for routine care Admission and Anticipated Discharge Date Admission Date: March 08, 2021 Subjective Patient is seen and examined at bedside States having nausea, minimal hematuria Also states having right lower quadrant abdominal pain, flank pain Denies chest pain, dyspnea, dizziness, vomiting Offers no other complaints Review of Systems Review of Systems: All systems reviewed & are unremarkable except as noted in HPI & below Physical Exam Physical Exam: Physical Exam: Vitals signs as noted above General Appearance:Morbidly Obese, no apparent distress Head: normocephalic, Atraumatic Eyes: normal inspection, EOMI Neck: supple, Trachea midline Respiratory/Chest: Normal breath sounds, CTA Cardiovascular: S1, S2, No murmur Abdomen/GI:Soft, RLQ, FLANK tender, Bowel sounds present Extremities/Musculoskeletal:normal inspection, no edema Neurologic/Psych:AAOX3, grossly no focal neurological deficits Skin: normal color, warm Results & Data Results & Data ([facility]) Vital Signs (Past 12 Hours) Vital Signs Temp Pulse Pulse Resp BP BP Pulse Ox 03/09/21 16:00 36.5 C 75 18 122/77 96 03/09/21 06:02 36.5 C 81 16 102/66 94 Laboratory Results Short CBC 03/09/21 Range/Units 06:37 WBC 6.15 (4.8-10.8) K/uL Hgb 12.1 (12.0-16.0) g/dL Hct 37.8 (37-47) % Plt Count 316 (130-400) K/uL BMP 03/09/21 06:37 Sodium 141 Potassium 3.8 Chloride 111 H Carbon Dioxide 27 BUN 13 Creatinine 0.75 Glucose 93 Calcium 8.4 L
[2021-03-10] MEDS: HYDROmorphone INJ 0.5 MG/0.5 ML SYR IV PRN ×3 (02:01→21:41)
[2021-03-10 06:56] LABS: Hematocrit (blood only) 36.5 % (37-47); Hemoglobin 11.7 g/dL (12.0-16.0); Mean Corpuscular Hemoglobin 28.1 pg (25-34); Mean Corpuscular Hgb Conc 32.1 g/dL (32-36); Mean Corpuscular Volume 87.5 fL (80-100); Mean Platelet Volume 9.9 fL (7.4-10.4); Platelet Count 281 K/uL (130-400); RDW Coefficient of Variation 14.7 % (11.5-14.5); RDW Standard Deviation 46.9 fL (36.4-46.3); Red Blood Count 4.17 M/uL (4.2-5.4); White Blood Count 5.93 K/uL (4.8-10.8)
[2021-03-10] MEDS: GABAPENTIN 300 MG CAP PO SCH ×2 (07:13→14:30)
[2021-03-10 07:29] LABS: BUN Creatinine Ratio 17.4 (10-20); Calcium 7.6 mg/dl (8.5-10.1); Creatinine Clr Calc Pharmacy 130.7 ml/min; Est GFR (African American) 121.3 ml/min; Est GFR (Non-African American) 104.6 ml/min; Magnesium 2.2 mg/dl (1.8-2.4); Potassium 3.8 mmol/L (3.5-5.1)
[2021-03-10] MEDS: FLUTICASONE PROPIONATE NA SPR 16 GM BTL SCH (08:18)
[2021-03-10] MEDS: FLUTICASONE/VILANTEROL 200/25MCG 14 PUFFS/INHALER INH SCH (08:18)
[2021-03-10] MEDS: SODIUM CHLORIDE 0.9% 1000ML 1,000 ML IV SCH ×2 (09:08→23:36)
[2021-03-10] MEDS ORDERED: fentaNYL citrate 100 MCG/2 ML VIAL ONE (10:48)
[2021-03-10] MEDS ORDERED: MIDAZOLAM HCL 1 MG/ML 2ML VIAL ONE (10:48)
[2021-03-10] MEDS ORDERED: ONDANSETRON INJ 2 MG/ML 2 ML VIAL IV PRN (10:50)
[2021-03-10] MEDS ORDERED: ePHEDrine sulfate 50 MG/ML AMP IV PRN (10:50)
[2021-03-10] MEDS ORDERED: ATROPINE SULFATE 0.1 MG/ML 10ML SYR IV PRN (10:50)
[2021-03-10] MEDS ORDERED: HYDROmorphone INJ 1 MG/ML SYRINGE IV PRN (10:50)
--- NOTE | 2021-03-10 11:16 | Urology Progress Note ---
Date of Service March 10, 2021 Assessment & Plan (1) Hydroureteronephrosis: Risks and benefits discussed at length for procedure. These include bleeding, infection, injury to surrounding tissues or organs, and risks associated with anesthesia. Patient states understanding and agrees to proceed. Will sign consent and proceed Plan for cystoscopy with right ureteroscopy and stone treatment and stent. (2) Kidney stone: Admission and Anticipated Discharge Date Admission Date: March 08, 2021 Subjective Patient admitted with stone and discomfort. Patient is afebrile. Has been undergoing maximum expulsion therapy with oral medications, IV medications, IV fluids, and oral intake. Has not improved pain or major issues. Has not developed severe vomiting or other issues. Has not experienced fever or chills. Has been tolerating oral medications. Is tolerating fluids. Has noticed some frequency and urgency. Continues to have pain in the back and flank. Does have occasional burning and irritation. No severe episodes or major changes. Patient does not believe the passed a stone. Has not passed a large amount of blood or debris that may be the stone. Review of Systems Review of Systems: All systems reviewed & are unremarkable except as noted in HPI & below Physical Exam Physical Exam: General: Alert in no acute distress. HEENT: Normocephalic Atraumatic. Inspection normal. Cranial Nerves 2-12 Grossly intact. Normal inspection of face. Normal inspection of neck. Psychologic: Normal affect. Respiratory: Nonlabored. No use of accessory muscles. No tachypnea or dyspnea. Cardiovascular: No tachycardia Skin: [place] and Dry. No rashes or visible lesions. Extremities/Lymphatics: No edema Abdomen: Soft Non-distended. No rebound or guarding. Obese Results & Data ([facility]) Vital Signs (Past 12 Hours) Vital Signs Temp Pulse Resp BP Pulse Ox 03/10/21 05:40 36.7 C 86 16 118/79 95 PG Care Time/CCT Total # of Minutes Spent Total Time Spent with Patient: Total time spent is greater than 50% in coordination of care (as documented) at patient's floor/unit and/or counseling patient: Coding Level of Care Code 65317 Subseq Hosp Care Lvl 3 Diagnoses Hydroureteronephrosis N13.30 Kidney stone N20.0
[2021-03-10] MEDS ORDERED: CIPROFLOXACIN 400MG / 200ML D5W IV ONE (11:20)
[2021-03-10] MEDS ORDERED: KETAMINE 50 MG/5 ML SYRINGE ONE (11:35)
[2021-03-10] MEDS ORDERED: DIATRIZOATE MEGLUMINE 30% 100ML VIAL INSTIL PRN (12:13)
[2021-03-10] MEDS ORDERED: PROPOFOL IV EMULSION 10 MG/ML 20 ML VIAL IV ONE (12:16)
[2021-03-10] MEDS ORDERED: LIDOCAINE 2% 2 ML VIAL/AMP(20MG/ML) INFIL ONE (12:16)
[2021-03-10] MEDS ORDERED: ONDANSETRON INJ 2 MG/ML 2 ML VIAL ONE (12:16)
--- NOTE | 2021-03-10 12:20 | Operative Report ---
PG Post Operative Report Pre & Post Diagnosis Operation Date: 03/10/21 09:00 Pre-Op Diagnosis: Right ureter calculus. Post-Op Diagnosis: Right ureter calculus. I identified the patient and participated in the time-out.: Yes Procedure Operation Date: 03/10/21 09:00 Actual Procedures p Cystoscopy with right ureteroscopy, laser lithotripsy, retrograde pyelogram, ureteral stent insertion, stone basket extraction, ureteral dilation(Right) - Dhiraj Denny DO Surgeon Dhiraj Denny, II, DO Directory Assistance Operator None Estimated Blood Loss 1 Findings Consistent with Post-Op Diagnosis Stone destroyed to dust and small fragments and larger fragments removed. Stone severely impacted with difficulty advancing wire. Stricture distal to stone dilated. Specimens Stone Fragments Right ureter Drains 6 Fr Multilength Anesthesia Type General Complications none Disposition Disposition: Recovery Room Indications Patient with bothersome stones. Risks and benefits discussed at length. Description of Procedure Patient was consented and brought back to the operating room. Patient was placed under anesthesia in the supine position and moved to the dorsal lithotomy position. Patient was prepped and draped in the regular sterile fashion. A time out was completed. A 30degree Cystoscope was placed into the bladder and the entire bladder was examined. The UO's were identified. The UO was cannulized with a catheter and a retrograde pyelogram was completed. A wire was then placed. The wire did appear to be caught up by where the stone was located. The Rigid ureteroscope was taken into the ureter. The stone was identified impacted into the wall posteriorly. A stricture was dilated. A laser fiber was selected and the stones were pulverized to dust and small fragments. Larger fragments were grasped and removed and sent for analysis. The entire area was once again examined. No residual large fragments or areas of concern were noted. The scope was slowly removed with the wire left in place. Contrast was placed through the scope for a pyelogram to assist in stent placement. The entire ureter was examined as the scope was slowly removed. No obstructions or other areas of concern were noted. With the wire in place, a 6 Fr Double J stent was placed. It was confirmed with fluoroscopy. With the stent in place, the bladder was emptied. The scope was removed. The patient was cleaned, aroused from anesthesia, and transferred to the pacu in stable condition having tolerated the procedure well with no complications. I was present and participated in all aspects of the procedure. The patient will be monitored in the PACU until transferred. Plan for stent for 2-3 weeks for healing with stent removal in office after KUB. I attest to the content of the Intraoperative Record and any orders documented therein. Any exceptions are noted below.
[2021-03-10] MEDS: fentaNYL citrate 100 MCG/2 ML VIAL IV PRN ×3 (12:30→12:40)
--- NOTE | 2021-03-10 12:33 | Anesthesiology Progress Note ---
Date of Service March 10, 2021 Anesthesia Post Procedure Vital Signs Vital Signs: Temp Pulse Resp BP Pulse Ox Pulse Ox 03/10/21 05:40 36.7 C 86 16 118/79 95 03/09/21 22:17 36.7 C 72 16 107/69 94 03/09/21 21:30 94 03/09/21 16:00 36.5 C 75 18 122/77 96 Pain Intensity Right Abdomen: Pain Intensity: 0 Right Flank: Pain Intensity: 4 Transfer of Care Handoff Completed per policy Notes Mental Status: alert / awake / arousable and participated in evaluation Patient Amnestic to Procedure: Yes Nausea / Vomiting: adequately controlled Pain: adequately controlled Airway Patency, RR, SpO2: stable & adequate BP & HR: stable & adequate Hydration State: stable & adequate Anesthetic Complications: no major complications apparent and Pt Satisfied with anesthetic care
[2021-03-10] MEDS: PANTOprazole 40 MG TAB PO SCH (14:30)
[2021-03-10] MEDS: VENLAFAXINE HCL XR 75 MG CAPXR PO SCH (14:30)
[2021-03-10] MEDS: CHOLECALCIFEROL 1,000 UNITS 25 MCG TAB PO SCH (14:30)
[2021-03-10] MEDS: MONTELUKAST SODIUM 10 MG TABLET PO SCH (14:30)
--- NOTE | 2021-03-10 16:00 | Hospitalist Progress Note ---
Date of Service March 10, 2021 Assessment & Plan (1) Right ureteral calculus: (2) Hydroureteronephrosis: Patient is a 45 yr female with H/O Asthma, sarcoidosis, RODRIGUES cirrhosis, h/o kidney stone requiring lithotripsy presented to ER complaint of right sided abdominal pain, nausea, vomiting x3 days. Right ureteral calculus Right hydroureteronephrosis/Obstructive Uropathy -CT ABD:An 11 mm obstructing stone within the distal right ureter resulting in moderate right hydroureteronephrosis. No change in the nodular contour to the liver suggestive of cirrhosis. Significant decrease in size in the pulmonary nodules. Cholecystectomy. -S/P laser lithotripsy, ureteral stent placement, stone basket extraction, ureteral dilatation by Dr. Denny POD #0 -Urine Cx: No growth -Continue IV fluids Pain control Appreciate Urology Input (3) Asthma: Continue albuterol, Breo (4) Liver cirrhosis: RODRIGUES cirrhosis Follows with [facility] (5) GERD (gastroesophageal reflux disease): Continue PPI (6) Anxiety: Continue venlafaxine DVT Px SCDs Code Status Full code Disposition Follows with [facility] for routine care Admission and Anticipated Discharge Date Admission Date: March 08, 2021 Subjective Patient is seen and examined at bedside Patient had lithotripsy, ureteral stent placement earlier today States having pressure-like sensation during micturition Denies any hematuria, chest pain, dyspnea, dizziness, vomiting No significant abdominal pain Review of Systems Review of Systems: All systems reviewed & are unremarkable except as noted in HPI & below Physical Exam Physical Exam: Physical Exam: Vitals signs as noted above General Appearance:Morbidly Obese, no apparent distress Head: normocephalic, Atraumatic Eyes: normal inspection, EOMI Neck: supple, Trachea midline Respiratory/Chest: Normal breath sounds, CTA Cardiovascular: S1, S2, No murmur Abdomen/GI:Soft, non tender, Bowel sounds present Extremities/Musculoskeletal:normal inspection, no edema Neurologic/Psych:AAOX3, grossly no focal neurological deficits Skin: normal color, warm Results & Data Results & Data ([facility]) Vital Signs (Past 12 Hours) Vital Signs Temp Pulse Pulse Pulse Resp BP Pulse Ox 03/10/21 14:55 37.1 C 72 16 124/77 94 03/10/21 13:30 36.8 C 76 16 114/75 93 03/10/21 13:05 78 17 123/83 95 03/10/21 12:55 36.4 C L 75 20 131/77 93 03/10/21 12:45 68 22 129/84 93 03/10/21 12:35 74 20 123/81 96 03/10/21 12:27 36.0 C L 74 14 132/76 92 03/10/21 05:40 36.7 C 86 16 118/79 95 Laboratory Results Short CBC 03/10/21 Range/Units 06:45 WBC 5.93 (4.8-10.8) K/uL Hgb 11.7 L (12.0-16.0) g/dL Hct 36.5 L (37-47) % Plt Count 281 (130-400) K/uL BMP 03/10/21 06:45 Sodium 141 Potassium 3.8 Chloride 111 H Carbon Dioxide 27 BUN 12 Creatinine 0.70 Glucose 95 Calcium 7.6 L
[2021-03-10] MEDS: KETOROLAC TROMETHAMINE 15 MG/ML VIAL IV PRN (18:03)
--- NOTE | 2021-03-10 21:16 | Fluoroscopy Report ---
FL retrograde includes kub CLINICAL HISTORY: CYSTO STENT COMPARISON STUDY: None FLUOROSCOPY TIME: 27 seconds. NUMBER OF FLUOROSCOPIC IMAGES: 5 FINDINGS: Urinary catheter and wire within right collecting system is seen with subsequent injection of the contrast and double-J urinary stent placement. IMPRESSION: As above. ACT 112: Negative or not required by law. The above report was generated using voice recognition software. It may contain grammatical, syntax o r spelling errors. Electronically signed by: Milly Thapa DO 03/10/2021 9:15 PM
[2021-03-10] MEDS: oxyCODONE HCL IR 5 MG TAB (IMMEDIATE RELEASE) PO PRN (23:41)
[2021-03-11] MEDS: HYDROmorphone INJ 0.5 MG/0.5 ML SYR IV PRN (03:50)
[2021-03-11] MEDS: ONDANSETRON INJ 2 MG/ML 2 ML VIAL IV PRN ×2 (03:50→13:09)
--- NOTE | 2021-03-11 07:54 | Urology Progress Note ---
Date of Service March 11, 2021 Assessment & Plan (1) Right ureteral calculus: (2) Hydroureteronephrosis: 45 year-old female patient admitted with intractable right-sided abdominal pain with associated nausea/vomiting secondary to obstructing 11 mm right distal ureteral calculus. -POD#1 cystoscopy with right ureteroscopy, laser lithotripsy/stone treatment, and right ureteral stent insertion with Dr. Denny. -Patient clinically progressing as expected. -Remains afebrile. -Labs reviewed - creatinine stable. -Does report symptoms associated/consistent with stent discomfort. -Recommend adding PRN Oxybutynin for bladder spasms in addition to PRN Pyridium. -Okay to discharge home from perspective. -Recommend home with 3-5 day course antibiotic therapy, pain control, Tamsulosin, PRN Oxybutynin and PRN Pyridium. -Will arrange outpatient follow-up with urology service for stent removal in 2-3 weeks. -Expected clinical course reviewed with patient, all questions answered. Thank you for allowing us to participate in the acute care of Mrs. Roque. Please reconsult us with additional questions, concerns or changes in patient status. Admission and Anticipated Discharge Date Admission Date: March 08, 2021 Subjective POD #1 cystoscopy with right ureteroscopy, laser lithotripsy, retrograde pyelogram, right ureteral stent insertion, stone basket extraction, and right ureteral dilation with Dr. Denny. Patient feeling well overall. Does report right-sided abdominal and right flank discomfort. Describes discomfort as "pressure". Denies fevers or chills. Denies nausea or vomiting. Denies dysuria. Notes hematuria as expected with stent. Does also report urinary frequency/urgency. Feels she empties her bladder well overall. No prior history of constipation. Chart review: Afebrile Labs 03/10 - Wbc 5.93 Hgb 11.7 Creatinine today 0.82 Urine culture 03/08 with three types of organisms present, all low counts probable skin roddy. Denies additional urologic concerns today. Review of Systems Constitutional: as per Subjective / HPI; no fever and no chills Gastrointestinal: as per Subjective / HPI; no nausea and no vomiting Genitourinary: as per Subjective / HPI Physical Exam Constitutional: well developed and well nourished; no acute distress and not ill appearing Respiratory: normal respiratory effort and able to speak in complete sentences; no respiratory distress and no audible wheezes Gastrointestinal (Abdomen): Inspection/Auscultation: abdomen normal to inspection; abdomen not distended Percussion/Palpation: abdomen soft; abdomen nontender and no guarding Psychiatric: Orientation: alert, oriented x 3 and cooperative Affect: euthymic affect Genitourinary: + CVA tenderness (+right) Results & Data ([facility]) Vital Signs (Past 12 Hours) Vital Signs Temp Pulse Resp BP Pulse Ox Pulse Ox 03/11/21 07:03 36.8 C 80 18 99/66 L 94 03/11/21 04:23 36.7 C 81 16 128/76 91 03/10/21 23:32 36.6 C 89 14 101/65 92 03/10/21 21:30 92 PG Care Time/CCT Total # of Minutes Spent Total Time Spent with Patient: Total time spent is greater than 50% in coordination of care (as documented) at patient's floor/unit and/or counseling patient: Coding Level of Care Code 56627 Subseq Hosp Care Lvl 2 Diagnoses Right ureteral calculus N20.1 Hydroureteronephrosis N13.30
[2021-03-11 07:56] LABS: BUN Creatinine Ratio 12.7 (10-20); Calcium 7.9 mg/dl (8.5-10.1); Creatinine Clr Calc Pharmacy 111.6 ml/min; Est GFR (African American) 100.2 ml/min; Est GFR (Non-African American) 86.4 ml/min; Potassium 3.7 mmol/L (3.5-5.1)
[2021-03-11] MEDS: FLUTICASONE PROPIONATE NA SPR 16 GM BTL SCH (08:36)
[2021-03-11] MEDS: FLUTICASONE/VILANTEROL 200/25MCG 14 PUFFS/INHALER INH SCH (08:36)
[2021-03-11] MEDS: CHOLECALCIFEROL 1,000 UNITS 25 MCG TAB PO SCH (08:37)
[2021-03-11] MEDS: GABAPENTIN 300 MG CAP PO SCH ×2 (08:37→13:31)
[2021-03-11] MEDS: VENLAFAXINE HCL XR 75 MG CAPXR PO SCH (08:37)
[2021-03-11] MEDS: PANTOprazole 40 MG TAB PO SCH (08:37)
[2021-03-11] MEDS: MONTELUKAST SODIUM 10 MG TABLET PO SCH (08:37)
[2021-03-11] MEDS: oxyCODONE HCL IR 5 MG TAB (IMMEDIATE RELEASE) PO PRN ×2 (09:34→15:55)
[2021-03-11] MEDS ORDERED: PHENAZOPYRIDINE HCL 100 MG TAB PO PRN (09:55)
[2021-03-11] MEDS ORDERED: NITROFURANTOIN MONOHYDRATE 100 MG CAP PO SCH (10:15)
[2021-03-11] MEDS: SODIUM CHLORIDE 0.9% 1000ML 1,000 ML IV SCH (12:18)
--- NOTE | 2021-03-11 13:53 | Hospitalist Progress Note ---
Date of Service March 11, 2021 Assessment & Plan (1) Right ureteral calculus: (2) Hydroureteronephrosis: Patient is a 45 yr female with H/O Asthma, sarcoidosis, RODRIGUES cirrhosis, h/o kidney stone requiring lithotripsy presented to ER complaint of right sided abdominal pain, nausea, vomiting x3 days. Right ureteral calculus Right hydroureteronephrosis/Obstructive Uropathy -CT ABD:An 11 mm obstructing stone within the distal right ureter resulting in moderate right hydroureteronephrosis. No change in the nodular contour to the liver suggestive of cirrhosis. Significant decrease in size in the pulmonary nodules. Cholecystectomy. -S/P laser lithotripsy, ureteral stent placement, stone basket extraction, ureteral dilatation by Dr. Denny POD #1 -Urine Cx: No growth -Received IV fluids Pain control Appreciate Urology Input Needs follow-up with urology upon discharge (3) Asthma: Continue albuterol, Breo (4) Liver cirrhosis: RODRIGUES cirrhosis Follows with [facility] (5) GERD (gastroesophageal reflux disease): Continue PPI (6) Anxiety: Continue venlafaxine DVT Px SCDs Code Status Full code Disposition Follows with [facility] for routine care Admission and Anticipated Discharge Date Admission Date: March 08, 2021 Subjective Patient is seen and examined at bedside Doing well today Nauseous earlier today but resolved States to have pressure like sensation of RLQ/Flank region Minima hematuria intermittently Denies any hematuria, chest pain, dyspnea, dizziness, vomiting No other complaints Review of Systems Review of Systems: All systems reviewed & are unremarkable except as noted in HPI & below Physical Exam Physical Exam: Physical Exam: Vitals signs as noted above General Appearance:Morbidly Obese, no apparent distress Head: normocephalic, Atraumatic Eyes: normal inspection, EOMI Neck: supple, Trachea midline Respiratory/Chest: Normal breath sounds, CTA Cardiovascular: S1, S2, No murmur Abdomen/GI:Soft, non tender, Bowel sounds present Extremities/Musculoskeletal:normal inspection, no edema Neurologic/Psych:AAOX3, grossly no focal neurological deficits Skin: normal color, warm Results & Data Results & Data ([facility]) Vital Signs (Past 12 Hours) Vital Signs Temp Pulse Resp BP Pulse Ox 03/11/21 07:03 36.8 C 80 18 99/66 L 94 03/11/21 04:23 36.7 C 81 16 128/76 91 Laboratory Results BMP 03/11/21 06:27 Sodium 140 Potassium 3.7 Chloride 108 H Carbon Dioxide 26 BUN 10 Creatinine 0.82 Glucose 86 Calcium 7.9 L
--- NOTE | 2021-03-11 13:59 | Discharge Summary ---
Date of Service March 11, 2021 Admission HPI Per Admitting Provider Pt is 45 y/o F with PMH asthma, sarcoidosis, RODRIGUES cirrhosis, h/o kidney stone requiring lithotripsy presented to ER complaint of abdominal pain, nausea, vomiting x3 days. Reports right-sided abdominal pain radiating to right groin. Complains of nausea and multiple episodes of vomiting daily. Has been taking temperature and no fevers at home. Denies dysuria, unsure if had hematuria has just finished menstrual cycle. Denies ill contacts, recent travel, hematemesis, hematochezia, diarrhea, constipation, ROGERS, dizziness, syncope, vision changes, neck pain, CP, SOB, orthopnea, palpitations, cough, sore throat, choking, otalgia, rhinorrhea, paresthesias, weakness, extremity weakness, extremity edema, rashes. In ER CT abdomen pelvis reveals 11 mm obstructing stone within the distal right ureter resulting in moderate right hydroureteronephrosis. UA not consistent with infection, renal functions WNL at this time. Patient being admitted for further evaluation and treatment. Admission Exam Per Admitting Provider Physical Exam Physical Exam: General: no distress, obese Head: normocephalic, atraumatic Eyes: conjunctiva non-injected, anicteric ENT: normal inspection external ears, nose, mucous membranes mildly dry Neck: supple, trachea midline, Lungs: clear, no respiratory distress, no wheezing/rhonchi/rales CV: RRR, no murmur,no pretibial edema Abd: protuberant, normal BS, soft, +tenderness to palpation right CVA, right flank Ext: no cyanosis, no calf tenderness Neuro: A&O x 3, no focal deficits noted, normal affect Skin: warm, dry Principal Diagnosis Right ureteral calculus Right hydroureteronephrosis/Obstructive Uropathy Discharge Data Allergies Allergy/AdvReac Type Severity Reaction Status Date / Time amoxicillin Allergy Severe THROAT Verified 03/08/21 16:53 SWELLS HIVES Penicillins Allergy Severe THROAT Verified 03/08/21 16:53 SWELLS, HIVES cephalexin Allergy Intermediate TONGUE Verified 03/08/21 16:53 SWELLS erythromycin base Allergy Intermediate Hives Verified 03/08/21 16:53 Macrolide Antibiotics Allergy Intermediate Hives Verified 03/08/21 16:53 metoclopramide Allergy Intermediate DYSPNEA Verified 03/08/21 16:53 Consultations 03/08/21 16:37 ED Decision to Admit Stat 03/08/21 19:31 Consult Urology Routine Procedures Performed Operation Date: 03/10/21 09:00 Actual Procedures p laser, lithotripsy, stone basket extraction, (Right) - DO chase Gonzalez ureteral stent insertion(Right) - Dhiraj Denny, s Cystoscopy Retrograde Pyelogram, ureteroscopy, dilation - Dhiraj Denny DO CT ABD: CT ABD:An 11 mm obstructing stone within the distal right ureter resulting in moderate right hydroureteronephrosis. No change in the nodular contour to the liver suggestive of cirrhosis. Significant decrease in size in the pulmonary nodules. Cholecystectomy. Ordered Studies 03/08/21 15:24 CT abd pelvis wo con Stat 03/10/21 10:46 FL retrograde includes kub Routine Hospital Course (1) Right ureteral calculus: (2) Hydroureteronephrosis: Patient is a 45 yr female with H/O Asthma, sarcoidosis, RODRIGUES cirrhosis, h/o kidney stone requiring lithotripsy presented to ER complaint of right sided abdominal pain, nausea, vomiting x3 days. Right ureteral calculus Right hydroureteronephrosis/Obstructive Uropathy -CT ABD:An 11 mm obstructing stone within the distal right ureter resulting in moderate right hydroureteronephrosis. No change in the nodular contour to the liver suggestive of cirrhosis. Significant decrease in size in the pulmonary nodules. Cholecystectomy. -S/P laser lithotripsy, ureteral stent placement, stone basket extraction, ureteral dilatation by Dr. Denny POD #1 -Urine Cx: No growth -Received IV fluids Pain control Appreciate Urology Input Needs follow-up with urology upon discharge (3) Asthma: Continue albuterol, Breo (4) Liver cirrhosis: RODRIGUES cirrhosis Follows with [facility] (5) GERD (gastroesophageal reflux disease): Continue PPI (6) Anxiety: Continue venlafaxine DVT Px SCDs Code Status Full code Disposition Follows with [facility] for routine care Total Time Total Time Spent Total Time Spent (In Minutes): 38 minutes Total Time Includes: Examination of the Patient, Discharge Planning, Medication Reconciliation, Communication With Other Providers and Other Discharge Plan Discharge Items Patient Disposition: Home - Self-Care Reason For Visit: URETER CALCULUS Discharge Diagnosis: Right ureteral calculus Right hydroureteronephrosis/Obstructive Uropathy Activity: Per Instructions section Exercise/Sports: Gradually increase as tolerated Non-emergency contact: Primary Care Provider and Urologist Call non-emergency contact if: you have any medication questions, your symptoms worsen, your pain is not controlled, your pain is worsening, your pain is concerning for you and you have a fever Follow-up/Referrals: Dhiraj Denny DO [Physician] - (The Urology Office will call you with an appointment.) [facility],Medicine [Primary Care Provider] - (Please call [facility] in Medicine for a hospital discharge follow up appointment.) Diet: Heart Healthy Miriam Attending Provider Instructions: Follow-up with your primary care physician in 1 week as advised Follow-up with your urologist Dr. Denny in 2-3 weeks Complete the antibiotic course as recommended by your urologist Seek immediate medical attention if your symptoms reoccur or worsen Please take all medications as instructed on discharge list below. Please call if you have any questions or problems. You can reach a [facility] hospitalist on duty at [facility] 24 hours a day by calling [phone] Miriam Trapeze Artist Provider Instructions: Please take all medications as prescribed and keep all follow-ups as scheduled. Please call our office at [phone] with any questions, concerns or need to reschedule appointments for any reason. We are happy to assist you. While you have a ureteral stent in place: Some discomfort is normal. Certain movements may trigger pain or a feeling that you need to urinate. You may also feel mild soreness or pressure before or during urination. These symptoms should go away a few days after the stent is removed. Your urine may be slightly pink or red. This is due to bleeding caused by minor irritation from the stent. This may happen on and off while you have the stent, it is not harmful and is to be expected. Medication to help minimize discomfort or bladder spasms, or to prevent infection may be prescribed. Take this as directed. Drink plenty of fluids to help flush out your urinary tract. If you go home with a catheter, wash with soapy water and a fresh washcloth twice daily. We recommend mild bar soap such as Dial or Dove. How long will you need a stent? An appointment should already be made for you for stent removal, unless directed otherwise. The stent is often taken out after the blockage in the ureter is treated or the ureter has healed. This may take 1-2 weeks, or longer. If a stent is needed for a longer period of time, it may need to be exchanged every few months. Likely prior to your followup appointment you will be asked to get an X-ray, please complete this the night before or morning of your appointment. When to call [facility] at [phone]: Your urine contains heavy blood clots You are constantly leaking urine Fever of 101F or higher, chills, nausea, or vomiting Your pain is not relieved with medication The end of the stent comes out of your urethra Pending Studies at Discharge: No Stand-Alone Forms: [facility] [place], Opioid Pain Management, Smoking Cessation Medications and DC Order Prescriptions: New tamsulosin 0.4 mg Capsule 0.4 mg PO HS Qty: 15 RF: 0 phenazopyridine [Pyridium] 100 mg Tablet 100 mg PO TID PRN (Reason: pain) Qty: 30 RF: 0 oxycodone 5 mg Tablet 5 mg PO Q8H PRN (Reason: pain) Qty: 8 RF: 0 nitrofurantoin monohyd/m-cryst 100 mg Capsule 100 mg PO BID Qty: 5 RF: 0 Continued mometasone [Nasonex] 50 mcg/actuation spray,non-aerosol 2 sprays INTNAS DAILY RF: 0 albuterol sulfate 90 mcg/actuation aerosol powdr breath activated 2 puffs INH Q6H PRN (Reason: Shortness Of Breath) RF: 0 hydroxyzine pamoate 50 mg Capsule 50 mg PO TID PRN (Reason: Anxiety) RF: 0 venlafaxine [Effexor XR] 75 mg Capsule,Extended Release 24hr 225 mg PO DAILY RF: 0 meloxicam 15 mg Tablet 15 mg PO DAILY RF: 0 gabapentin 300 mg Capsule See Rx Instructions .ROUTE .COMPLEX RF: 0 montelukast [Singulair] 10 mg Tablet 10 mg PO DAILY RF: 0 cholecalciferol (vitamin D3) [Vitamin D3] 25 mcg (1,000 unit) Capsule 25 mcg PO DAILY RF: 0 omeprazole 20 mg Tablet,Delayed Release (Dr/Ec) 20 mg PO DAILY RF: 0 fluticasone propion-salmeterol [Advair Diskus] 500-50 mcg/dose Blister With Device 1 inh INHALATION BID RF: 0 Discharge Orders: Discharge Order (Routine); Ordered 03/11/21 Ordered By: Jeramy Contreras Admission Data Admit Date/Time: 03/08/21 17:50 Attending Provider: Jeramy Contreras Admit Provider: Huseyin Bourgeois Primary Care Provider: Edy Coronado,Medicine Other Providers: Huseyin Bourgeois ; Dhiraj Denny Other Interventions: Discharge Summary Assessment (RN) Last Done: 03/11/21 14:14
[2021-03-11] MEDS ORDERED: TAMSULOSIN HCL 0.4 MG CAP PO SCH (21:00)
[2021-03-14 14:16] LABS: Component 2 DNR; Source URETER
== END 2021-03-11 16:45 | disposition home or self-care (01) | DRG 661 ==
LOC: ED 15:11 → 3W 17:50 → SUATTDRO 17:50 → 3W 18:12